=== PATIENT | male | born 1960 | race Caucasian/White ===

== ENCOUNTER 2017-04-03 17:35 | Emergency (ER) | payer OTHER ==
[~2017-04-03] VITALS: Ht 190.5 cm; Wt 120.5 kg
[2017-04-03 17:41] VITALS: BP 160/83; PULSE 86; RESP 20; O2SAT 96
--- NOTE | 2017-04-03 18:07 | ED.REPORT ---
HPI-Head Prob / Injury Date of Service Apr 03, 2017 ED Provider: Hi Sun DO Pt is an otherwise healthy 56 year male who presents to the ED after hitting the top of his head today on the raised bed frame of a trailer while walking. He c/o associated headache and nausea. He denies LOC and slurred speech. Pt rates his headache as a 2.5/10. He denies a history of stroke and denies a history of living in [place]. Nursing Notes Stated Complaint: HEAD INJURY, CONCERN FOR CONCUSSION Chief Complaint: Head, Face, Neck Trauma Nursing Notes Reviewed: Yes Allergies: Coded Allergies: No Known Allergies (Unverified , 04/03/17) General Time Seen by Provider: 18:07 Chief Complaint Blunt head trauma Hx Obtained From: Patient Arrived By: Walk-in Onset Occurred: Just prior to arrival Symptom Duration: Since onset Quality: Painful Severity: Current: Moderate Severity: Maximum: Moderate Recent Healthcare: No recent doctor visit, No recent hospitalization Similar Sx Previous: No Past Medical History Past Medical History Sleep apnea on CPAP Low testosterone Denies: Congestive heart failure, Hypertension, Stroke, Transient ischemic attack Past Surgical History Denies Smoking History Unknown if Ever Smoker Social History Alcohol Use: Denies alcohol use Drug Use: Other (CBD) Other Social History: Good social support Occupation [employer] Status Independent Review of Systems GI: Reports: Nausea Neurologic: Reports: Headache, Slurred speech, Denies: Change LOC, Syncope Complete sys rev & neg: except as marked. Physical Exam Initial Vital Signs Vital Signs (First) Date Time Temp Pulse Resp B/P Pulse Ox O2 Delivery O2 Flow Rate FiO2 04/03/17 17:41 36.7 86 20 160/83 96 04/03/17 19:25 Room Air Initial VS: Reviewed Respiratory: Breath sounds normal, Clear to auscultation, No respiratory distress Cardiovascular: Regular rate & rhythm, Heart sounds normal, Intact distal pulses Abdomen / GI: Soft, Non-tender Extremities: Vascular intact, Neuro intact Skin: Warm, Dry, No cyanosis Psychiatric: Mood/affect normal, Behavior normal General/Constitutional: Awake, Alert HEAD: Abrasion to the top of his scalp ENT: Atraumatic, Airway patent Neck: Atraumatic, Full range of motion Neurologic: Oriented X3, Speech NL Interpretation & Diagnostics Lab Results Interpretation Test 04/03/17 18:01 Hold Urine Received (Received) CT Head Interpretation IMPRESSION: 1. No acute intracranial process. 2. Low attenuation focus within the medial left temporal lobe as above. This is felt to be likely an incidental finding. This could represent a cyst or a focus of previous trauma/ischemia/infection. No prior studies are available for comparison. A non-emergent basis, as clinically indicated, MRI may be obtained for additional evaluation. Dictated by: Kirstin Blas M.D. on 04/03/2017 at 18:11 Study: Head CT no contrast Interpretation / Wet Read by: Interpret - Radiologist Re-Eval/Medical Decision Med Decision/Clinical Course Healthy 56-year-old male with significant blunt head trauma. No loss of consciousness however 30 minutes later he developed nausea, difficulty concentrating and mild slurred speech since resolved. Symptoms consistent with a concussion however taking out the delayed onset neurologic symptoms a CT scan was indicated. The CT scan shows a hypodensity in the left brain. This will need outpatient follow-up. No evidence of acute traumatic injury. He will be treated for concussion. Source of Hx: Old records Re-Evaluation/Progress : Time of Eval: 18:50 Re-Evaluation/Progress Note: Informed pt of plan for discharge. Pt understands and agrees with plan for discharge. F/U instructions and RTER warnings given. All questions addressed. Counseled Regarding: Diagnosis, Need for follow-up, When/why to return to ED Discharge & Departure Primary Impression: Concussion Encounter type: initial encounter Loss of consciousness presence/duration: without LOC Qualified Code: S06.0X0A - Concussion without loss of consciousness, initial encounter Additional Impression: Scalp abrasion Encounter type: initial encounter Qualified Code: S00.01XA - Abrasion of scalp, initial encounter Disposition: Home All VS Reviewed: Yes Condition: Stable Patient Instructions: Concussion (ED), Laceration (ED) Additional Instructions: The CT scan showed no signs of trauma. It suggests that you have a concussion. Take [id number] acetaminophen as directed for headache. Take 1-2 Zofran every 8 hours as needed for nausea. Do not participate in any activities that put you at risk of another head injury until your symptoms have resolved. The CT scan did show that you have a low attenuation lesion in the left brain. A non-emergent out-patient MRI is recommended. Set this up with the referral clinic or your primary care provider. Return to the Emergency Department for any new or worrisome symptoms. Referrals: Oleg Ortiz PA-C Attestation Portions of this note were transcribed by Earnestine Ring. I, Dr. Sun personally performed the history, physical exam and medical decision-making; I reviewed and confirmed the accuracy of the information in the transcribed note. Signed by : Collette Patton, 04/03/17. copies to: Oleg Ortiz PA-C, Todd P DO Apr 03, 2017 18:07 Earnestine Hdz Apr 03, 2017 18:51
--- NOTE | 2017-04-03 18:22 | DRSVH ---
PROCEDURE: CT BRAIN WITHOUT CONTRAST ([id number]) INDICATIONS: HIT HEAD TECHNIQUE: Noncontrast 4.5 mm thick angled axial sections acquired from the foramen magnum to the vertex, with c oronal reformats. COMPARISON: None. FINDINGS: Image quality: Excellent. CSF spaces: Basal cisterns are patent. No extra-axial fluid collections. Ventricles are normal in size and shape. Brain: No midline shift. No intracranial hemorrhage. 15 mm AP by 20 mm transverse low-attenuation f ocus in the left medial temporal lobe. No priors are available for comparison. Back-white matter inte rface is normal. Skull and face: Calvarium and visualized facial bones are intact, without suspicious lesions. Sinuses: Visualized sinuses and mastoids are clear. IMPRESSION: 1. No acute intracranial process. 2. Low attenuation focus within the medial left temporal lobe as above. This is felt to be likely an incidental finding. This could represent a cyst or a focus of previous trauma/ischemia/infection. No prior studies are available for comparison. A non-emergent basis, as clinically indicated, MRI may be obtained for additional evaluation. Dictated by: Kirstin Blas M.D. on 04/03/2017 at 18:11 Approved by: Kirstin Blas M.D. on 04/03/2017 at 18:20
[2017-04-03] MEDS ORDERED: diphenhydrAMINE 25 mg Capsule PO ONE (18:55)
[2017-04-03 19:25] VITALS: BP 142/85; PULSE 80; RESP 20; O2SAT 96
== END 2017-04-03 19:26 | disposition home or self-care (01) ==
LOC: SED 17:35
DX: S06.0X0A Concussion without loss of consciousness, initial encounter (principal); S00.01XA Abrasion of scalp, initial encounter; W22.09XA Striking against other stationary object, initial encounter; Y93.01 Activity, walking, marching and hiking; Y99.0 Civilian activity done for income or pay; Y92.59 Other trade areas as the place of occurrence of the external cause